=== PATIENT | female | born 1990 | race African-American/Black ===

== ENCOUNTER 2017-07-21 10:30 | Emergency (ER) | payer MEDICAID, OTHER ==
[~2017-07-21] VITALS: Ht 172.7 cm; Wt 81.0 kg
[2017-07-21] MEDS ORDERED: IBUPROFEN 600MG TABLET PO ONE (11:15)
[2017-07-21 13:00] VITALS: BP 126/84
== END 2017-07-21 14:00 | disposition home or self-care (01) ==
LOC: ER 13:01
DX: S93.401A Sprain of unspecified ligament of right ankle, initial encounter (principal); S90.31XA Contusion of right foot, initial encounter; M77.31 Calcaneal spur, right foot; W10.9XXA Fall (on) (from) unspecified stairs and steps, initial encounter; Y93.89 Activity, other specified; Y99.8 Other external cause status; Y92.89 Other specified places as the place of occurrence of the external cause; Z87.440 Personal history of urinary (tract) infections
CPT/HCPCS: 73610; 73630; 81025; 99284

== ENCOUNTER 2017-07-30 15:23 | Emergency (ER) | payer MEDICAID ==
[~2017-07-30] VITALS: Ht 172.7 cm; Wt 78.0 kg
[2017-07-30 19:32] VITALS: BP 111/76
== END 2017-07-30 19:32 | disposition home or self-care (01) ==
LOC: ER 15:23
DX: R21 Rash and other nonspecific skin eruption (principal); Z90.49 Acquired absence of other specified parts of digestive tract
CPT/HCPCS: 99283

== ENCOUNTER 2018-02-17 18:55 | Emergency (ER) | payer MEDICAID | END 2018-02-17 20:11 | disposition left against medical advice (07) | LOC: ER 18:55 | DX: R10.9 Unspecified abdominal pain (principal); Z53.21 Procedure and treatment not carried out due to patient leaving prior to being seen by health care provider ==